=== PATIENT | male | born 1975 | race Hispanic/Latino ===

== ENCOUNTER 2018-07-24 16:49 | Emergency (ER) | payer OTHER ==
[2018-07-24] MEDS ORDERED: ONDANSETRON ODT 4 MG TAB ONE (17:07)
[2018-07-24] MEDS ORDERED: MORPHINE SULFATE 4 MG/1ML SYG ONE (17:08)
[2018-07-24 18:01] LABS: BASOPHILS % (AUTO) 0.5 % (0.0-5.0); EOSINOPHILS % (AUTO) 2.9 % (0.0-8.0); HEMATOCRIT 39.2 % (42-54); LYMPHOCYTES % (AUTO) 17.3 % (21.0-51.0); MEAN CORPUSCULAR HEMOGLOBIN 31.5 pg (27.0-33.0); MEAN CORPUSCULAR HGB CONC 35.2 g/dL (32.0-36.0); MEAN CORPUSCULAR VOLUME 89.4 fL (79-99); MONOCYTES % (AUTO) 6.2 % (3.0-13.0); NEUTROPHILS % (AUTO) 73.1 % (40.0-77.0); PLATELET COUNT (AUTO) 211 K/uL (130-400); RED BLOOD CELL COUNT(AUTO) 4.38 MIL/uL (4.50-6.20); RED CELL DISTRIBUTION WIDTH 13.5 % (11.0-15.5); WHITE BLOOD COUNT (AUTO) 7.5 K/uL (4.8-10.8)
[2018-07-24 18:08] LABS: CREATININE 1.5 mg/dL (0.5-1.5); POTASSIUM 3.9 mmol/L (3.5-5.1)
[2018-07-24] MEDS ORDERED: IOHEXOL-350 75 ML VIAL IV ONE (18:39)
[2018-07-24] MEDS ORDERED: HYDROCODONE/ACETAMINOPHEN 5/325 MG TAB ONE (19:43)
[2018-07-24] MEDS ORDERED: LISINOPRIL 5 MG TABLET ONE (19:43)
[2018-07-24] MEDS ORDERED: CLONIDINE HCL 0.1 MG TABLET ONE (21:26)
== END 2018-07-24 22:16 | disposition home or self-care (01) ==
LOC: EDH 16:49
DX: S42.462A Displaced fracture of medial condyle of left humerus, initial encounter for closed fracture (principal); I10 Essential (primary) hypertension; Z72.0 Tobacco use; W18.39XA Other fall on same level, initial encounter; Y93.01 Activity, walking, marching and hiking; Y92.89 Other specified places as the place of occurrence of the external cause; Y99.8 Other external cause status
CPT/HCPCS: 29105; 36415; 73080; 73201; 80048; 85025; 96372; 99285; J2270; Q9967

== ENCOUNTER 2021-10-04 21:28 | Inpatient (IN) | payer OTHER ==
[~2021-10-04] VITALS: Ht 172.7 cm; Wt 97.1 kg
[2021-10-04 22:17] LABS: APPEARANCE,URINE CLEAR (CLEAR); BILIRUBIN,URINE NEGATIVE (NEGATIVE); COLOR,URINE YELLOW (YELLOW); GLUCOSE, URINE (UA) 100 mg/dL (NEGATIVE); KETONES,URINE 5 mg/dL (NEGATIVE); LEUKOCYTE ESTERASE ,URINE NEGATIVE (NEGATIVE); NITRATE,URINE NEGATIVE (NEGATIVE); OCCULT BLOOD,URINE SMALL (NEGATIVE); PROTEIN,URINE >=300 mg/dL (NEGATIVE); UROBILINOGEN,URINE 0.2 mg/dL (0.2-1.0)
[2021-10-04 22:21] LABS: BASOPHILS % (AUTO) 0.4 % (0.0-5.0); EOSINOPHILS % (AUTO) 6.2 % (0.0-8.0); HEMATOCRIT 42.3 % (42-54); MEAN CORPUSCULAR HEMOGLOBIN 31.1 pg (27.0-33.0); MEAN CORPUSCULAR HGB CONC 35.2 g/dL (32.0-36.0); MEAN CORPUSCULAR VOLUME 88.3 fL (79-99); MONOCYTES % (AUTO) 5.5 % (3.0-13.0); PLATELET COUNT (AUTO) 191 K/uL (130-400); RED BLOOD CELL COUNT(AUTO) 4.79 MIL/uL (4.50-6.20); RED CELL DISTRIBUTION WIDTH 12.5 % (11.0-15.5); WHITE BLOOD COUNT (AUTO) 5.7 K/uL (4.8-10.8)
[2021-10-04 22:30] LABS: CREATININE 2.3 mg/dL (0.5-1.5); POTASSIUM 3.8 mmol/L (3.5-5.1)
[2021-10-04] MEDS ORDERED: NIFEDIPINE 10 MG CAP PO ONE (22:30)
[2021-10-04 22:40] LABS: TOTAL PROTEIN, SERUM 7.9 g/dL (6.0-8.3)
[2021-10-04 22:42] LABS: CRP QUANTITATIVE < 2.00 mg/L (0.00-9.0)
[2021-10-04 22:43] LABS: CREATINE KINASE, TOTAL 250 U/L (21-232)
[2021-10-04] MEDS ORDERED: ASPIRIN 325MG TAB ONE (22:45)
[2021-10-04] MEDS ORDERED: NITROGLYCERIN 1GM OINT 1 INCH/1GM TD ONE ×2 (22:45→23:00)
[2021-10-04] MEDS ORDERED: IPRATROPIUM/ALBUTEROL SULFATE 3 ML SOLUTION IH ONE ×2 (22:51→23:00)
[2021-10-04] MEDS ORDERED: ASPIRIN 325MG TAB PO ONE (23:00)
[2021-10-04 23:19] LABS: BACTERIA,URINE Few /HPF (None Seen); RBC,URINE 0-1 /HPF (0-1); SQUAMOUS EPITHELIAL CELL,UR Rare /HPF (0-2)
[2021-10-04 23:31] LABS: AMPHET/METH SCREEN,URINE NEGATIVE (NEGATIVE); BARBITURATE SCREEN, URINE NEGATIVE (NEGATIVE); BENZODIAZEPINES SCREEN,URINE NEGATIVE (NEGATIVE); CANNABINOID SCREEN,URINE NEGATIVE (NEGATIVE); COCAINE SCREEN,URINE POSITIVE (NEGATIVE); PHENCYCLIDINE SCREEN,URINE NEGATIVE (NEGATIVE)
[2021-10-05] MEDS ORDERED: GUAIFENESIN-DM 200/20 MG 10 ML PO PRN (01:30)
[2021-10-05] MEDS ORDERED: HYDRALAZINE 20MG/ML VIAL IV PRN (01:30)
[2021-10-05] MEDS ORDERED: NITROGLYCERIN 0.4 MG SL TAB SL PRN (01:30)
[2021-10-05] MEDS ORDERED: ACETAMINOPHEN 325 MG TAB PO PRN (01:30)
[2021-10-05] MEDS ORDERED: MORPHINE 2 MG SYG IV PRN (01:30)
[2021-10-05] MEDS ORDERED: DIPHENHYDRAMINE HCL 25 MG CAPSULE PO PRN (01:30)
[2021-10-05] MEDS ORDERED: ONDANSETRON 4MG INJ IV PRN (01:30)
[2021-10-05] MEDS ORDERED: LACTULOSE 20 GM/30 ML UDCUP PO PRN (01:30)
[2021-10-05 01:54] LABS: CHOLESTEROL 266 mg/dL (<200); HDL CHOLESTEROL 39 mg/dL (29-71); LDL DIRECT 133 mg/dL (0-99); TRIGLYCERIDES 698 mg/dL (30-200)
[2021-10-05 02:00] LABS: CHLORIDE,URINE RANDOM 112 mmol/L (110-250); POTASSIUM,URINE RANDOM 28 mmol/L (25-125); SODIUM,URINE RANDOM 88 mmol/l (40-220)
[2021-10-05] MEDS: FAMOTIDINE 20MG VIAL IV SCH (08:28)
[2021-10-05] MEDS: HEPARIN 5,000 UNIT VIAL SQ SCH ×2 (08:28→21:02)
[2021-10-05] MEDS ORDERED: METOPROLOL TARTRATE 25 MG TAB PO SCH (09:00)
[2021-10-05] MEDS: NIFEDIPINE 10 MG CAP PO SCH ×3 (09:24→21:01)
[2021-10-05 11:00] VITALS: BP 151/103
[2021-10-05] MEDS ORDERED: PHARMACY COMMUNICATION MISC SCH (11:00)
[2021-10-05 16:00] VITALS: BP 155/106
[2021-10-05 20:00] VITALS: BP 166/119
[2021-10-05] MEDS ORDERED: ATORVASTATIN 40 MG TABLET PO SCH (21:00)
[2021-10-06] VITALS: BP 162/114
[2021-10-06] MEDS ORDERED: LABETALOL 20MG VIAL IV ONE (02:00)
[2021-10-06 04:00] VITALS: BP 162/124
[2021-10-06] MEDS ORDERED: LABETALOL 20MG SYG IV ONE (04:00)
[2021-10-06 04:37] LABS: BASOPHILS % (AUTO) 0.7 % (0.0-5.0); EOSINOPHILS % (AUTO) 7.1 % (0.0-8.0); HEMATOCRIT 40.6 % (42-54); LYMPHOCYTES % (AUTO) 21.6 % (21.0-51.0); MEAN CORPUSCULAR VOLUME 86.2 fL (79-99); MONOCYTES % (AUTO) 9.8 % (3.0-13.0); NEUTROPHILS % (AUTO) 59.9 % (40.0-77.0); PLATELET COUNT (AUTO) 215 K/uL (130-400); RED BLOOD CELL COUNT(AUTO) 4.71 MIL/uL (4.50-6.20); RED CELL DISTRIBUTION WIDTH 12.2 % (11.0-15.5); WHITE BLOOD COUNT (AUTO) 5.5 K/uL (4.8-10.8)
[2021-10-06 04:50] LABS: HEMOGLOBIN A1C 5.5 % (4.0-6.0)
[2021-10-06 05:17] LABS: ALBUMIN 3.9 g/dL (3.5-5.0); CREATININE 1.4 mg/dL (0.5-1.5); MAGNESIUM 1.8 mg/dL (1.80-2.40); PHOSPHORUS 3.5 mg/dL (2.5-4.9); POTASSIUM 3.5 mmol/L (3.5-5.1); TOTAL PROTEIN, SERUM 7.7 g/dL (6.0-8.3)
[2021-10-06 07:41] VITALS: BP 160/105
[2021-10-06] MEDS ORDERED: NIFEDIPINE ER 30 MG TAB PO SCH (09:00)
[2021-10-06] MEDS ORDERED: Vitamin B Complex/Vit C/Folic Acid PO SCH (09:00)
[2021-10-06] MEDS ORDERED: LISINOPRIL 40 MG TABLET PO SCH (09:00)
[2021-10-06] MEDS: FAMOTIDINE 20MG VIAL IV SCH (09:22)
[2021-10-06] MEDS: HEPARIN 5,000 UNIT VIAL SQ SCH (09:26)
[2021-10-06 11:27] VITALS: BP 157/112
[2021-10-06] MEDS ORDERED: NIFE-40 PO (15:30)
[2021-10-06] MEDS ORDERED: ATOR40TA69 PO (15:30)
[2021-10-06] MEDS ORDERED: LISI40TA9 PO (15:30)
[2021-10-06 15:43] VITALS: BP 156/109
== END 2021-10-06 18:15 | disposition home or self-care (01) | DRG 281 ==
LOC: EDH 21:28 → EDHIP 21:29 → 4DH 10-05 10:58
PROVIDERS: ADMIT Internal Medicine; ATTEND Internal Medicine
DX: I16.1 Hypertensive emergency (principal); I21.A1 Myocardial infarction type 2; N17.9 Acute kidney failure, unspecified; F14.129 Cocaine abuse with intoxication, unspecified; E66.9 Obesity, unspecified; E78.5 Hyperlipidemia, unspecified; I10 Essential (primary) hypertension; F17.210 Nicotine dependence, cigarettes, uncomplicated; Z91.19 Patient's noncompliance with other medical treatment and regimen; Z68.32 Body mass index [BMI] 32.0-32.9, adult
CPT/HCPCS: 36415; 71045; 74176; 76770; 80051; 80053; 80061; 80305; 81001; 82550; 83036; 83735; 83874; 83880; 84100; 84484; 85025; 86140; 93005; 93306; 93356; 94640; G0378; J0360; J1644; J3490